=== PATIENT | female | born 1935 | race Caucasian/White ===

== ENCOUNTER 2017-03-15 10:09 | Day surgery (SDC) | payer BC ==
[~2017-03-15] VITALS: Ht 158.8 cm; Wt 98.2 kg
[2017-03-15] MEDS ORDERED: IOHEXOL 350 MG/ML 100 ML BTL (for Cath Lab) OTHER ONE (10:10)
[2017-03-15 11:04] VITALS: BP 162/84; PULSE 48; RESP 16; TEMP 98; O2SAT 97
[2017-03-15] MEDS ORDERED: LEVO125T4 PO (11:04)
[2017-03-15] MEDS ORDERED: LIVA2TAB PO (11:04)
[2017-03-15] MEDS ORDERED: OXYC1CAP PO (11:04)
[2017-03-15] MEDS ORDERED: METF500T PO (11:04)
[2017-03-15] MEDS ORDERED: ROSU1TAB8 PO (11:04)
[2017-03-15] MEDS ORDERED: TOLT1TAB16 PO (11:04)
[2017-03-15] MEDS ORDERED: TIZA2CAP3 PO (11:04)
[2017-03-15 11:20] LABS: AUTOMATED NEUTROPHIL # 2.4 TH/MM3 (1.8-7.7); BASOPHIL % 0.8 % (0.0-2.0); EOSINOPHIL # 0.3 TH/MM3 (0-0.4); EOSINOPHIL % 5.1 % (0.0-4.0); HEMATOCRIT 39.3 % (35.0-46.0); HEMO FLAGS DIFF FINAL; LYMPH % 42.1 % (9.0-44.0); LYMPHOCYTE # 2.4 TH/MM3 (1.0-4.8); MEAN CELL VOLUME 84.7 FL (80.0-100.0); MEAN CORPUSCULAR HEMOGLOBIN 27.7 PG (27.0-34.0); MEAN CORPUSCULAR HGB CONC 32.7 % (32.0-36.0); PLATELET COUNT 160 TH/MM3 (150-450); RED BLOOD COUNT 4.64 MIL/MM3 (4.00-5.30); RED CELL DISTRIBUTION WIDTH 14.2 % (11.6-17.2); WHITE BLOOD COUNT 5.6 TH/MM3 (4.0-11.0)
[2017-03-15 11:26] LABS: APTT (PATIENT) 26.5 SEC (24.3-30.1); INTERNATIONAL NORMALIZED RATIO 0.9 RATIO; PROTHROMBIN TIME - PATIENT 10.3 SEC (9.8-11.6)
[2017-03-15] MEDS ORDERED: NS 1000P @30 MLS/HR (KVO) IV SCH (11:30)
[2017-03-15 11:35] LABS: BICARBONATE 27.8 MEQ/L (21.0-32.0); POTASSIUM 3.9 MEQ/L (3.5-5.1)
[2017-03-15] MEDS ORDERED: HEPARIN-NS/PF INJ 1,000 ML ONE (13:53)
[2017-03-15] MEDS ORDERED: SODIUM CHLORID 0.9% 500 ML INJ 500 ML ONE (13:53)
[2017-03-15] MEDS ORDERED: MIDAZOLAM HCL 5 MG/5 ML VIAL ONE (13:54)
[2017-03-15] MEDS ORDERED: SODIUM CHLOR 0.9% 1000 ML INJ 500 ML IV SCH (14:38)
--- NOTE | 2017-03-15 14:41 | CATHPROC ---
[place] HIS Report Study Information Study Number Admission Scheduled Start Study Start [id number] Mar 15 2017 10:09AM 03/15/2017 Mar 15 2017 1:51PM [place] Service Cardiac Catheterization Admit Source Facility Department Other [facility] - Photogrammetric Surveyor Physician and Clinical Staff Initial Jun Zazueta Camp Attendant June Parham,RN Recorder Mary Kate Flores,(R) (BS) Scrub Mack Lomax RCIS(BS) Procedures Performed Procedure Location (Site) Vessel Name Angiogram LV LV Ventricle Coronary Angiograms LCA Left Coronary Coronary Angiograms RCA Right Coronary L Heart Cath Equipment Time Able Bodied Tankerman Description Size Mfg Part Number Used/Scraped TRANSDUCER, TRUWAVE [id number] 13:58 [employer] * Used W/STOCKCOCK *[id number] 14:31 [employer] MEDICAL VASCADE, FR5 CLOSURE SYSTEM FR 5 Used *[id number] [id number] *[id number] 534-520T *[id number] 534-552S *[id number] 13:58 [employer] PACK, CCL CUSTOM * Used *[id number] 13:58 [employer] PACER PEN, SKIN DUAL W/ RULER * Used *[id number] 13:58 [employer] WIRE, 3MMJ .035 180CM 180CM Used *[id number] PROBE COVER, STERILE [id number] 13:58 [employer] MEDICAL * Used ULTRASOUND W/ GEL *[id number] 13:58 NAMIC MANIFOLD, 4 PORT * Used *[id number] 13:58 NAMIC TUBING, HIGH PRESSURE 48" 48" Used *[id number] 13:58 [employer] OMNIPAQUE, 350 MG, 150ML 150ML [id number] Used [id number] 13:58 [employer] MEDICAL BLANKET,WARM AIR CCL * Used *[id number] 13:58 [employer] MEDICAL SHEATH, FR5 TERUMO (10CM) FR 5 Used *[id number] History: Current Medications Medication Dosage/Unit Route Frequency Last Date/Time Taken Statins (any) History: Allergies Allergy Reaction amlodipine Edema History: Risk Factors Family History of Hypertension Dyslipidemia Previous MN Previous Heart Failure Premature CAD Yes Yes No No No Prior Valve Prior PCI Prior CABG Surgery No No No Cerebrovascular Peripheral Artery Chronic Lung On Dialysis Diabetes Diabetes Therapy Disease Disease Disease No No No No Yes Oral History: Stress Tests Stress or Imaging Studies Performed Yes Standard Exercise Stress Test No Stress Echo No Stress Test SPECT Stress Test SPECT Result Stress Test SPECT Ischemia Risk/Extent Yes Positive Intermediate Stress Test CMR No Cardiac CTA Coronary Calcium Score No No History: Other Current Smoker Method Quit Packs a Day Years Used Pack Years No Cigarettes 40 Years Ago 3 15 45 Labs Hgb (g/dl) Hct (%) WBC (l/cumm) Platelets (thousands) 11.60-17.00 35.00-51.00 4.00-11.00 150.00-450.00 12.8 39.3 5.6 160 Glucose (mg/dl) BUN (mg/dl) Creatinine (mg/dl) BUN:Creatinine (1:x) 74.00-106.00 7.00-18.00 0.50-1.30 10.00-20.00 127 25 0.8 31.3 Na (meq/l) K (meq/l) 136.00-145.00 3.50-5.10 141 3.9 INR (PTT:PT) 0.90-1.10 0.9 CPK-MB (ng/ML) 0.50-3.60 Not Drawn Medication Medication Total Dose (Bolus/Oral) Medication Total Dosage/Unit 1% XYLOCAINE 20 mL FENTANYL 100 mcg VERSED 3 mg Medications (Bolus/Oral) Medication Time Given Dosage/Unit Administered By Reason VERSED 03/15/2017 2:07:04 PM 2 mg Adamy, June 2 mg VERSED given in lab by June Parham, PATY in Left Antecubital via Peripheral IV. FENTANYL 03/15/2017 2:08:12 PM 50 mcg DicksonyEmeraldJune 50 mcg FENTANYL given in lab by June Parham, RN in Left Antecubital via Peripheral IV. VERSED 03/15/2017 2:12:19 PM 1 mg Adamy, June 1 mg VERSED given in lab by June Parham, PAYT in Left Antecubital via Peripheral IV. FENTANYL 03/15/2017 2:13:30 PM 50 mcg Dicksony, June 50 mcg FENTANYL given in lab by June Parham, RN in Left Antecubital via Peripheral IV. 1% XYLOCAINE 03/15/2017 2:14:12 PM 20 mL Quadrat, [place] 20 mL 1% XYLOCAINE given in lab by Jun King in Right Groin via Subcutaneous. Medication (Drip) Medication Time Given Dosage/Unit Concentration/Unit Diluent (ml) Solutio n IV Solutions 03/15/2017 1:51:39 PM 0 mL (IV) 500 NaCl .9 Patient arrived on IV Solutions in Left Antecubital via Peripheral IV. Pump/Drip Flow = 100 ml/hr usi ng NaCl .9. Initial Case Assessment Cardiovascular HR Rhythm NIBP Chest Pain 52 reg 165/91 0 Edema Present Skin color Skin None Normal Warm Dry Circulatory - Right Pulses Dorsalis Pedis Femoral 3 2 Scale (0,1,2,3,4,d) Circulatory - Left Pulses Dorsalis Pedis Femoral 3 2 Scale (0,1,2,3,4,d) Circulatory - Lower Extremities Color Lower Right Color Lower Left Normal Normal Neurological State Oriented to time-place- Alert Moves all extremities person Respiration - General Respiration Rate SpO2 (%) (B/min) 10 100 Chronological Log Time Study Chronological Log 13:47:54 Patient arrived via Bed. 13:47:58 Patient Name, D.O.B, / Armband Verified By R.N. 13:51:02 Consent signed by the physician and the patient and verified by the Photogrammetric Surveyor staff. 13:51:03 Pre-op and post- op instructions given; patient acknowledges understanding of instructions. 13:51:04 Verbal Stimulation=2 Physical Stimulation=2 Airway=2 Respiration=2 TOTAL=8. (0=absent, 1=li mited, 2=present) 13:51:07 Presedation assessment performed by Photogrammetric Surveyor RN. 13:51:12 Immediate Presedation assesment performed by physician. 13:51:18 Patient has been NPO for More than 6Hrs. 13:51:22 Skin Breakdown none per pt 13:51:29 Patient Warmer Placed on the Table. Vitals capture started with the following parameters, Patient=Adult, Interval=5 min, Initial Pr xghkvn=519 mmHg, 13:51:32 Deflation Rate=5 mmHg, Cuff placed on Left Arm 13:51:34 Olga Prominences Protected 13:51:39 A # 20 IV was noted in the Antecubital (left). Grade = 0 13:51:39 Patient arrived on IV Solutions in Left Antecubital via Peripheral IV. Pump/Drip Flow = 100 ml/hr using NaCl .9. 13:51:40 History and physical on the chart or being dictated. Assessment: Initial Case, HR=52 BPM, Rhythm=reg, MVIF=439/91 mmhg, Chest Pain=0, Edema=None, Co shadi=Normal, Skin = Warm, Dry Right Pulses: Jose E Ped=3, Femoral=2 Left Pulses: Jose E Ped=3, Femoral=2 13:52:21 Lower Right Extremities: Color=Normal Lower Left Extremities: Color=Normal Neurological: State=Alert, Ox3, [place] Respiration: Resp=10 B/min, RmD3=111 % 13:52:44 HR=52 bpm, IRSH=403/91 mmhg, SpO2=99.0 %, Pain=0, Donna=10, Calzada=2 13:57:49 HR=53 bpm, IUQY=451/72 mmhg, SpO2=99.0 %, Resp=16 B/min, Pain=0, Donna=10, Calzada=2 13:58:16 Bilateral groins prepped with 2% chlorhexidine, and draped after a 3 minute waiting time. 14:00:50 Reference ECG taken 14:01:25 MD paged 14:02:15 HR=49 bpm, UHPF=649/77 mmhg, QsX6=403.0 %, Resp=13 B/min, Pain=0, Donna=10, Calzada=2 14:03:10 Pressure channel 1 zeroed. 14:04:18 MD arrived. 14:07:04 2 mg VERSED given in lab by June Parham, PATY in Left Antecubital via Peripheral IV. 14:07:16 HR=50 bpm, LOMG=206/78 mmhg, QcJ3=234.0 %, Resp=16 B/min, Pain=0, Donna=10, Calzada=2 14:08:12 50 mcg FENTANYL given in lab by June Parham, PATY in Left Antecubital via Peripheral IV. 14:12:19 1 mg VERSED given in lab by June Parham, PATY in Left Antecubital via Peripheral IV. 14:12:20 HR=49 bpm, SRUW=905/62 mmhg, SpO2=99.0 %, Resp=14 B/min, Pain=0, Donan=10, Calzada=2 14:13:30 50 mcg FENTANYL given in lab by June Parham RN in Left Antecubital via Peripheral IV. Time Out. Correct patient, correct procedure, correct physician, power injector loaded, with co ntrast with surgical team 14:13:35 present. Time Out Concurred by MD and individual staff in procedure. 14:13:59 Case Start 14:14:12 20 mL 1% XYLOCAINE given in lab by Jun King in Right Groin via Subcutaneous. 14:16:42 Access site was Right Femoral Artery using ultrasound 14:16:55 A SHEATH, FR5 TERUMO (10CM) FR 5 was advanced into the Fem Art (right) using the Percut[place]o us technique. 14:17:10 HR=53 bpm, FJPU=304/73 mmhg, SpO2=98.0 %, Resp=13 B/min, Pain=0, Donna=10, Calzada=2 A PIGTAIL ANG. INFINITI CATHETER FR 5 was advanced over a wire. OMNIPAQUE, 350 MG, 150ML 150ML was used 14:17:27 for injections. Recorded Pressure: LV, HR=50, Condition=Condition 1 14:19:21 (Left Ventricle) LV 148/9/14 14:20:09 The LV was injected at 10 cc/sec for a total of 30. OMNIPAQUE, 350 MG, 150ML 150ML used. Recorded Pressure: LV, Ao, HR=50, Condition=Condition 1 14:21:22 (Left Ventricle) LV 146/7/18, (Aorta) Ao 146/54/86 14:21:38 Catheter was removed A JL 4.0 INFINITI CATHETER FR 5 was advanced over a wire. OMNIPAQUE, 350 MG, 150ML 150ML was us ed for 14:21:46 injections. Recorded Pressure: Ao, HR=49, Condition=Condition 1 14:22:40 (Aorta) Ao 144/59/90 14:22:52 HR=53 bpm, DAGE=790/61 mmhg, TuI2=694.0 %, Resp=10 B/min, Pain=0, Donna=10, Calzada=2 14:23:14 The LCA was injected and visualized at various angles. OMNIPAQUE, 350 MG, 150ML 150ML used . 14:25:01 Catheter was removed A AR MOD INFINITI CATHETER FR 5 was advanced over a wire. OMNIPAQUE, 350 MG, 150ML 150ML was us ed for 14:25:18 injections. 14:26:37 The RCA was injected and visualized at various angles. OMNIPAQUE, 350 MG, 150ML 150ML used . 14:27:21 HR=57 bpm, PAXT=348/56 mmhg, LbZ1=213.0 %, Resp=13 B/min, Pain=0, Donna=10, Calzada=2 14:27:25 Catheter was removed 14:27:36 Case End 14:32:14 HR=61 bpm, UIZK=295/71 mmhg, IgF5=386.0 %, Resp=12 B/min, Pain=0, Donna=10, Calzada=2 14:32:59 VASCADE, FR5 CLOSURE SYSTEM FR 5 placement in the Fem Art (right) 14:34:41 Catheter(s) removed without difficulty 14:35:29 No case complications noted. 14:35:30 Cine recording checked. 14:35:33 Bedside Report will be given. 14:35:35 Implantable Device card placed in patient's chart. 14:35:39 Contrast Scanned 14:35:43 A Left Heart Cath was performed. 14:35:58 Sterile dressing applied to site 14:37:17 FNTP=370/77 mmhg, EmM7=596.0 %, Pain=0, Donna=10, Calzada=2 14:37:21 Vitals capture stopped. 14:37:28 DOCU called. Spoke to Miguel. 14:40:48 Patient moved to [facility] End Study - Contrast Media Used In Study Contrast Total Opened (mL) Total Used (mL) Total Wasted (mL) Omnipaque 65 65 0 End Study - Maximum Contrast Load Max Contrast Load (mL) 613.6 End Study - Radiation Exposure Fluoro Time (minutes) 2.1 End Study - Sheaths Sheaths Pulled By Sheath Hold Time (min) Mack Lomax End Study - Patient Disposition Complications Transferred To Interventional Outcome No Photogrammetric Surveyor Holding No attempt made
[2017-03-15 15:33] LABS: HDL CHOLESTEROL 40.4 MG/DL (40.0-60.0)
--- NOTE | 2017-03-15 17:53 | EKG ---
Date Performed: 03/15/2017 Time Performed: 11:02:56 PTAGE: 81 years EKG: Sinus bradycardia. Possible faulty V2 - omitted from analysis Prolonged QT interval Leftwar d axis Anterolateral T wave changes are nonspecific Borderline ECG NO PREVIOUS TRACING DOCTOR: Leland Urias Interpretating Date/Time 03/15/2017 17:51:44
--- NOTE | 2017-03-16 11:18 | MA ---
cc: DREW TRIANA DATE: 03/16/2017 INDICATION: Question of unstable angina, abnormal intermediate risk nuclear marker perfusion study. PROCEDURE PERFORMED 1. Retrograde heart catheterization with left ventriculography and selective angiography 2. Moderate sedation. ACCESS SITE: Access site is right femoral artery. EQUIPMENT USED: 5 Croatian pigtail catheter 5 JL-4 AR modified coronary catheters. PREMEDICATION Versed IV. Fentanyl IV CONTRAST Omnipaque 65 cc COMPLICATIONS None. METHOD OF HEMOSTASIS Bas cad closure. ESTIMATED BLOOD LOSS: Blood loss less than 10 cc. RESULTS OF HEMODYNAMICS: 1. Heart rate 50 beats per minute 2. Left end diastolic pressure 70 mmHg. 3. Left ventricle 145/47. 4. Aorta 145/69/90. 5. Left ventricular ejection fraction 65%. 6. Wall motion not remarkable. Mitral regurgitation CORONARY ANGIOGRAPHY: 1. Left main coronary patent. 2. Left <<1:05>> artery patent. 3. D1 patent 4. D2 large patent 5. left circumflex artery patent. 6. OM1 patent 7. Right coronary is a dominant vessel which is patent. 8. PDA patent. 9. PLV patent. DIAGNOSIS 1. Widely patent coronary arteries. 2. Preserved right ventricular systolic function. DISPOSITION: 1. Miss Tinsley can be reassured of noncardiac status. 2. He has widely patent coronaries, 10% of left ventricular systolic function. 3. She will be discharged home later today. 4. I will see her back to follow up in our office after discharge. Thank you MD LUIS EDUARDO Manuel/ulysses /2:36 PM /10:42 AM
== END 2017-03-15 19:24 | disposition home or self-care (01) ==
LOC: HDIC 10:09 → HDOC 10:09
PROVIDERS: ATTEND Internal Medicine Interventional Cardiology
DX: I25.110 Atherosclerotic heart disease of native coronary artery with unstable angina pectoris (principal); I49.5 Sick sinus syndrome; I10 Essential (primary) hypertension; E78.5 Hyperlipidemia, unspecified; G47.30 Sleep apnea, unspecified
CPT/HCPCS: 80048; 80061; 85025; 85610; 85730; 93005; 93458; 99152; 99153; C1760; C1769; C1893; G0269; J1644; J2250; J3010; J7040; Q9967